=== PATIENT | female | born 1985 | race Caucasian/White ===

== ENCOUNTER 2016-08-20 20:34 | Emergency (ER) | payer MEDICAID ==
[~2016-08-20] VITALS: Ht 160 cm; Wt 55.0 kg
[~2016-08-20 20:34] MED LIST: FERR27TA PO; HYDR-3498 PO; MAG-19 PO; OMEP20CA16 PO; ONDA4TAB35 PO; PREN1TAB49 PO; UDMYL PO
[2016-08-20 20:45] VITALS: Ht 160 cm; Wt 55.0 kg
[2016-08-20] MEDS ORDERED: NAPR-260 PO (23:38)
[2016-08-20] MEDS ORDERED: HYDR-906 PO (23:39)
[2016-08-20] MEDS ORDERED: CYCL-319 PO (23:40)
--- NOTE | 2016-08-21 00:02 | ERD ---
ER Documentation Chief Complaint Date/Time DATE: 08/20/16 TIME: 23:41 Chief Complaint neck pain and headach for past 4 days HPI This is a 30-year-old female who presents to emergency department today complaining of headache in the back of her head and some neck pain and tingling in her neck for the past 4 days. States she has not taken any medication for the pain. Denies any dizziness, blurred vision, nausea or vomiting. Denies any fevers or chills. ROS All systems reviewed and are negative except as per history of present illness. Medications Home Meds Active Scripts Cyclobenzaprine Hcl* (Cyclobenzaprine Hcl*) 10 Mg Tablet, 10 MG PO QHS, #7 TAB Prov:DOYLE SOTOMAYOR PA-C 08/20/16 Hydrocodone/Acetaminophen ([place] 5-325 Tablet) 1 Each Tablet, 1 TAB PO Q6H Y for PAIN, #12 TAB Prov:DOYLE SOTOMAYOR PA-C 08/20/16 Naproxen* (Naprosyn*) 500 Mg Tablet, 500 MG PO BID Y for PAIN AND/OR INFLAMMATION, #30 TAB Prov:DOYLE SOTOMAYOR PA-C 08/20/16 Ondansetron Hcl* (Zofran* ODT) 4 mg -ODT Tab.disper, 4 MG PO Q8 Y for NAUSEA AND /OR VOMITING, #30 TAB Prov:MARIAJOSE FRANKS NP 09/27/15 Hydrocodone Bit-Acetaminophen* ([place]*) 5-325 Mg Tab, 1 TAB PO Q4H Y for SEVERE PAIN LEVEL 7-10, #20 TAB Prov:MARIAJOSE FRANKS NP 09/27/15 Omeprazole* (Omeprazole*) 20 Mg Capsule.dr, 20 MG PO DAILY, #30 CAP Prov:MARIAJOSE FRANKS NP 09/27/15 Magaldrate/Simethicone* (Mylanta*) 355 Ml Susp, 30 ML PO QID Y for GASTROINTESTINAL UPSET, #1 BOTTLE Prov:MARIAJOSE FRANKS NP 09/27/15 Magaldrate/Simethicone* (Mag-Al Plus Suspension*) 30 Ml Oral.susp, 30 ML PO Q6H Y for GASTROINTESTINAL UPSET, #1 BOT Prov:MARIAJOSE FRANKSRamirez DOLL WIGS HACKLER 03/28/15 Omeprazole* (Omeprazole*) 20 Mg Capsule., 20 MG PO DAILY, #30 CAP Prov:MARIAJOSE FRANKSRamirez DOLL WIGS HACKLER 03/28/15 Reported Medications Ferrous Sulfate (Iron) 1 Tab Tablet, 1 TAB PO BID 10/17/11 Vits W-Ca,Fe,Fa(<1MG) () 1 Tab Tablet, 1 TAB PO 10/17/11 Allergies Allergies: Coded Allergies: No Known Drug Allergies (Verified Allergy, Unknown, 03/27/15) PMhx/Soc History of Surgery: Yes (CHOLECYTECTOMY. ) Anesthesia Reaction: No Hx Neurological Disorder: No Hx Respiratory Disorders: No Hx Cardiac Disorders: No Hx Psychiatric Problems: No Hx Miscellaneous Medical Probl: No (gallstones ) Hx Alcohol Use: No Hx Substance Use: No Hx Tobacco Use: No Physical Exam Vitals Vital Signs Date Time Temp Pulse Resp B/P Pulse Ox O2 Delivery O2 Flow Rate FiO2 08/20/16 20:45 97.8 77 18 116/72 98 Physical Exam Const: No acute distress Head: Atraumatic Eyes: Normal Conjunctiva. PERRLA. EOM intact. ENT: Normal External Ears, Nose and Mouth. Neck: Full range of motion..~ No meningismus. No midline tenderness. Bilateral paraspinal tenderness. Resp: Clear to auscultation bilaterally Cardio: Regular rate and rhythm, no murmurs Abd: Soft, non tender, non distended. Normal bowel sounds Skin: No petechiae or rashes Back: No midline or flank tenderness Ext: No cyanosis, or edema Neur: Awake and alert. No focal neurologic deficits. No gait ataxia. Psych: Normal Mood and Affect Procedures/MDM This is a 30-year-old female who presents to emergency department today complaint of headache and neck pain for the past 4 days. Patient describes her headache as being in the back of her head. Patient has not taken any medication for the pain. She is afebrile and otherwise well-appearing. She has full active range of motion of her neck. She has no focal neurologic deficits. She has no gait ataxia. I do not feel the patient requires laboratory work or imaging at this time. I have low suspicion for abscess, mass, acute hemorrhage. Patient had no trauma. Patient's symptoms at this time consistent with headache possibly related to tension type headaches and neck muscle spasm. I offered to give the patient pain medication here in the emergency department and patient indicated that she does not have pain currently. Patient will be discharged home with a prescription for [place], Naprosyn and Flexeril. At this time the patient is stable for discharge and outpatient management. Patient should follow up with their PCP in the next 1-2 days. They may return to the emergency department sooner for any persistent or worsening of symptoms. Patient understood and agreed with the plan. Departure Diagnosis: Primary Impression: Headache Headache type: tension-type Headache chronicity pattern: unspecified pattern Intractability: not intractable Qualified Code: G44.209 - Tension- type headache, not intractable, unspecified chronicity pattern Condition: Fair Patient Instructions: Self-Care for Headaches, Neck Spasm, No Trauma Referrals: [facility] se wynne hecho un examen mdico de control que le indica que no est en bren condicin que requiera tratamiento urgente en el Departamento de Emergencia. Un estudio ms profundo y el tratamiento de meek condicin pueden esperar sin ningn riesgo hasta que usted sea atendida/o en el consultorio de meek mdico o bren cl charles. Es responsabilidad suya arreglar bren vasile para el seguimiento del pilo. MANEJO DE CONDICIONES NO URGENTES EN EL FUTURO 1) Si usted tiene un mdico de atencin primaria: Usted debera llamar a meek mdico de atencin primaria antes de venir al departamento de emergencia. Despus de las horas de consultorio, meek doctor o meek asociado/a est disponible por telfono. El mdico o enfermero de krystyna en el servicio telefnico puede asesorarle por diya medio para atender el problema, o pilo contrario se puede programar bren vasile. 2) Si usted no tiene un mdico de atencin primaria: Llame al mdico o clnica de referencia que aparece abajo bridger las horas de consultorio para hacer bren vasile para que le vean. CLINICAS: [facility] [id number] [facility] [phone] [facility] [phone] [place] [address] [phone] [place] [address] [phone] [facility]. [phone] [address] Additional Instructions: Llame al doctor MAANA y eve bren VASILE PARA DENTRO DE 1-2 SAAVEDRA.Dgale a la secretaria que nosotros le instruimos hacer esta vasile.Avise o llame si meek condicin se empeora antes de la vasile. Regresa aqui si peor o no mejor. Take [place] for severe pain otherwise take Naprosyn or Tylenol or Motrin Take Flexeril for muscle spasms. Do not drive while taking this medication. DOYLE SOTOMAYOR PA-C Aug 20, 2016 23:51
== END 2016-08-21 00:08 | disposition home or self-care (01) ==
LOC: FTE 20:34
DX: G44.209 Tension-type headache, unspecified, not intractable (principal)
CPT/HCPCS: 99284